=== PATIENT | female | born 1995 | race Hispanic/Latino ===

== ENCOUNTER 2023-03-05 07:30 | Outpatient (RCR) | payer OTHER, SELFPAY ==
--- NOTE | 2023-02-26 10:28 | OT.OP.EVAL ---
Visit Care Team Role Provider Type Karin Rome DO Attending Provider Non-Staff Primary Care Provider Referring Provider Specialty: Medical Address: [address] [place] [address], [id number] Email: Occupational Therapy Initial Evaluation OT Outpatient Adult Evaluation Start: 02/26/23 10:01 Freq: Status: Active Protocol: Document 02/26/23 10:01 [facility] (Rec: 02/26/23 10:27 [facility] [id number]) General Information - Adult Visit Number 1 Plan of Care Dates 02/26/23 - 03/26/23 Insurance Information Prime; EVAL CHARGE ONLY then 12 visits Visit Start Time 07:45 Visit Stop Time 08:15 Total Visit Minutes 30 Treatment Setting Outpatient Care Note Type Initial Evaluation Referring Physician Karin Rome MD Reason for Referral Bilateral wrist pain Identification Confirmed Yes Identification Confirmed By Self Goals Fdc Goals 1. Palak will be modified independent with execution of home exercise program utilizing provided written and visual instructions from therapist. 2. Palak will be able to verbalize 100% understanding of joint protection principles referring to provided written materials as needed. 3. Palak will be able to verbally identify 2 to 3 different conservative methods of pain/swelling management that she can utilize in the home. 4. Palak will present with improved pain-free active R wrist flexion which will support engagement in meaningful activities; she will demonstrate 0-40 degrees active R wrist flexion. Assessment/Plan Treatment Assessment Palak is a 27 year-old right hand dominant female referred to outpatient OT by her PCP secondary to bilateral wrist pain. Medical history is significant for bunionectomy, talotarsal implant and removal , removal of tumor from finger , vision problems, depression and allergies/tape/latex. Palak completed the Pain Assessment Grid and indicated 7 out of 10 relative to distal UEs (elbows --> fingertips); on the Pain Assessment Wrist/ Hand Grid, Palak indicated 5 out of 10 on the pain scale relative to left thumb, 7 out of 10 of volar left wrist and 6 out of 10 of dorsal ulnar surface of left wrist, 4 out of 10 relative to L 2nd and 4th and 5th volar/dorsal surfaces of digits, 4 out of 10 relative to R 2nd volar/ dorsal surface of digit, and 7 out of 10 relative to volar/ dorsal surfaces of 4th and 5th digits of the right hand. QuickDASH UE Outcome Measure Score = 25.00 and QuickDASH Work Module Score = 25.00. 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 Currently she is completing stretches to help alleviate symptoms; she is also using pillows under both elbows while sleeping on her back to address pain at night. Ibuprofen reportedly did not help her manage the pain. She intends on going back to school full-time (in-person) to become a dentist. 0-28 degrees active R wrist flex; 0 -40 degrees active L wrist flex. 0-65 degrees active R wrist ext; 0-65 degrees active L wrist ext. 0-15 degrees active R wrist RD; 0-15 degrees active L wrist RD. 0- 25 degrees active R wrist UD; 0-30 degrees active L wrist UD . Some discomfort reported in bilateral wrists w/ tendon glides; (-) intrinsic tightness noted w/ hook fists bilaterally. 5/5 MMT R wrist flex/ext; 5/[address]/ UD. 4/5 MMT L wrist flex; 5/5 MMT L wrist ext. 5/[address]/ UD and R RD/UD. Weakness noted of bilateral FPL; weakness noted w/ R 4th and 5th digit abd/adduction. Slight abduction observed of 5th digit at rest. Denial of exacerbation of symptoms w/ ulnar nerve tension tests. Mild swelling of R thumb webspace; mild tightness of R thumb add; tenderness to palpation. None noted Corby Cid will be relocating to [place] in the near future; thus, will be seen for a limited number of visits in this clinic. Outpatient OT is recommended to address weakness, AROM, joint protection principles, conservative methods of pain management, and develop home exercise program. Length of treatment (weeks) 4 Plan of Care Start Date 02/26/23 Plan of Care End Date 03/26/23 Treatment Frequency Once a Week Therapeutic Contents Active Range of Motion, Adaptive Equipment Education, Client Education,Cognitive Skills Development,Functional Activities,Home Exercise Program,Joint Protection, Manual Therapy,Education, Neurodevelopment Treatment, Neuromuscular Re-Education, Self-Care,Stretching/ Flexibility Activities, Therapeutic Activities, Therapeutic Exercises, Modalities Modalities As Needed,As Prescribed Additional Types of Modalities Heat/Ice/Contrast bath/ Paraffin/Ultrasound
--- NOTE | 2023-03-05 13:15 | OT.OP.DC ---
Visit Care Team Role Provider Type Karin Rome DO Attending Provider Non-Staff Primary Care Provider Referring Provider Address: [address] [place] [address], [id number] Email: OT Outpatient OT Outpatient Adult Evaluation Start: 02/26/23 10:01 Freq: Status: Active Protocol: Document 02/26/23 10:01 [facility] (Rec: 02/26/23 10:27 [facility] [id number]) General Information - Adult Visit Information Visit Number 1 Plan of Care Dates 02/26/23 - 03/26/23 Insurance Information Prime; EVAL CHARGE ONLY then 12 visits Session Time Visit Start Time 07:45 Visit Stop Time 08:15 Total Visit Minutes 30 Setting Treatment Setting Outpatient Care Visit Type Note Type Initial Evaluation Referral Referring Physician Karin Rome MD Reason for Referral Bilateral wrist pain Identification Identification Confirmed Yes Identification Confirmed By Self Goals Educator Senior Clinical Goals Educator Senior Clinical Goals 1. Palak will be modified independent with execution of home exercise program utilizing provided written and visual instructions from therapist. 2. aPlak will be able to verbalize 100% understanding of joint protection principles referring to provided written materials as needed. 3. Palak will be able to verbally identify 2 to 3 different conservative methods of pain/swelling management that she can utilize in the home. 4. Palak will present with improved pain-free active R wrist flexion which will support engagement in meaningful activities; she will demonstrate 0-40 degrees active R wrist flexion. Assessment/Plan Assessment Treatment Assessment Palak is a 27 year-old right hand dominant female referred to outpatient OT by her PCP secondary to bilateral wrist pain. Medical history is significant for bunionectomy, talotarsal implant and removal , removal of tumor from finger , vision problems, depression and allergies/tape/latex. Palak completed the Pain Assessment Grid and indicated 7 out of 10 relative to distal UEs (elbows --> fingertips); on the Pain Assessment Wrist/ Hand Grid, Palak indicated 5 out of 10 on the pain scale relative to left thumb, 7 out of 10 of volar left wrist and 6 out of 10 of dorsal ulnar surface of left wrist, 4 out of 10 relative to L 2nd and 4th and 5th volar/dorsal surfaces of digits, 4 out of 10 relative to R 2nd volar/ dorsal surface of digit, and 7 out of 10 relative to volar/ dorsal surfaces of 4th and 5th digits of the right hand. QuickDASH UE Outcome Measure Score = 25.00 and QuickDASH Work Module Score = 25.00. 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 Currently she is completing stretches to help alleviate symptoms; she is also using pillows under both elbows while sleeping on her back to address pain at night. Ibuprofen reportedly did not help her manage the pain. She intends on going back to school full-time (in-person) to become a dentist. 0-28 degrees active R wrist flex; 0 -40 degrees active L wrist flex. 0-65 degrees active R wrist ext; 0-65 degrees active L wrist ext. 0-15 degrees active R wrist [address]; 0-15 degrees active L wrist RD. 0- 25 degrees active R wrist UD; 0-30 degrees active L wrist UD . Some discomfort reported in bilateral wrists w/ tendon glides; (-) intrinsic tightness noted w/ hook fists bilaterally. 5/5 MMT R wrist flex/ext; 5/[address]/ UD. 4/5 MMT L wrist flex; 5/5 MMT L wrist ext. 5/[address]/ UD and R RD/UD. Weakness noted of bilateral FPL; weakness noted w/ R 4th and 5th digit abd/adduction. Slight abduction observed of 5th digit at rest. Denial of exacerbation of symptoms w/ ulnar nerve tension tests. Mild swelling of R thumb webspace; mild tightness of R thumb add; tenderness to palpation. None noted Corby Cid will be relocating to [place] in the near future; thus, will be seen for a limited number of visits in this clinic. Outpatient OT is recommended to address weakness, AROM, joint protection principles, conservative methods of pain management, and develop home exercise program. Plan Length of treatment (weeks) 4 Plan of Care Start Date 02/26/23 Plan of Care End Date 03/26/23 Treatment Frequency Once a Week Therapeutic Contents Active Range of Motion, Adaptive Equipment Education, Client Education,Cognitive Skills Development,Functional Activities,Home Exercise Program,Joint Protection, Manual Therapy,Education, Neurodevelopment Treatment, Neuromuscular Re-Education, Self-Care,Stretching/ Flexibility Activities, Therapeutic Activities, Therapeutic Exercises, Modalities Modalities As Needed,As Prescribed Additional Types of Modalities Heat/Ice/Contrast bath/ Paraffin/Ultrasound Functional Wrist/Hand Scan Hand Side Sensory Assessment Sensory Profile2 OT Outpatient Treatment Note - Adult Start: 02/26/23 10:01 Freq: Status: Active Protocol: Document 03/05/23 13:07 [facility] (Rec: 03/05/23 13:14 [facility] [id number]) OT Outpatient Adult Treatment Note Session Time Visit Start Time 07:35 Visit Stop Time 08:15 Total Visit Minutes 40 Visit Information Plan of Care Dates 02/26/23 - 03/26/23 Setting Treatment Setting Outpatient Care Visit Type Note Type Treatment Note General Information General Information Palak is a 27 year-old right hand dominant female referred to outpatient OT by her PCP secondary to bilateral wrist pain. Medical history is significant for bunionectomy, talotarsal implant and removal , removal of tumor from finger , vision problems, depression and allergies/tape/latex. Palak completed the Pain Assessment Grid and indicated 7 out of 10 relative to distal UEs (elbows --> fingertips); on the Pain Assessment Wrist/ Hand Grid, Palak indicated 5 out of 10 on the pain scale relative to left thumb, 7 out of 10 of volar left wrist and 6 out of 10 of dorsal ulnar surface of left wrist, 4 out of 10 relative to L 2nd and 4th and 5th volar/dorsal surfaces of digits, 4 out of 10 relative to R 2nd volar/ dorsal surface of digit, and 7 out of 10 relative to volar/ dorsal surfaces of 4th and 5th digits of the right hand. - Subjective Identification Type Name Identification Reconciled With Medical Record Observations Last outpatient treatment visit given Palak is relocating out of state. - Objective Assisted Goals GOALS D/C 03/05/23 1. Palak will be able to verbalize 100% understanding of joint protection principles referring to provided written materials as needed. 2. Palak will be able to verbally identify 2 to 3 different conservative methods of pain/swelling management that she can utilize in the home. 3. Palak will present with improved pain-free active R wrist flexion which will support engagement in meaningful activities; she will demonstrate 0-40 degrees active R wrist flexion. GOALS MET Palak will be modified independent with execution of home exercise program utilizing provided written and visual instructions from therapist. Mod independent w/ current HEP 03/05/23 - Treatment 1 Descriptor Ultrasound. 2.3 w/cm2. 20% duty cycle. Dorsal thumb web space R hand to address swelling. Skin intact pre- and post- treatment. Exercises 1 Descriptor HEP. - Assessment Assessment of Improvement Patient is relocating out of state with fiance; she will be starting school in the near future to become a dentist. Reviewed self-directed myofascial thumb add release with recommended hold of 20 o 30 seconds; reviewed passive wrist/digit flexor stretch w/ elbow extension. Instructed in passive wrist extension w/ UD w/ elbow in extension w/ forearm supination. Instructed in use of table and/or wall to support stretching/as an alternative. Instructed in ulnar wrist stretch w/ use of TT and forearm in pronation. All questions were answered. Discussed resuming outpatient OT services once she is settled into her new home. Recommend d/c from outpatient OT at this time. - Plan Therapy Recommendations Discharge from Occupational Therapy Additional Therapy Recommendations Relocating; will be moving out of state
== END 2023-03-07 09:09 | disposition home or self-care (01) ==
LOC: OT 07:30
DX: M25.539 Pain in unspecified wrist (principal)
CPT/HCPCS: 97035; 97110; 97165